=== PATIENT | male | born 1970 | race Caucasian/White ===

== ENCOUNTER 2016-10-17 12:32 | Emergency (ER) | payer OTHER ==
[~2016-10-17] VITALS: Wt 122.5 kg
[~2016-10-17 12:32] MED LIST: KEFLEX500 MG PO; PREDNISONE10 MG PO; PRILOSEC20 MG PO; ROBITUSSIN AC 110 ML PO; SILVADENE1% TP; VENTOLIN H0.09 MG/AC INH
== END 2016-10-17 14:38 | disposition home or self-care (01) ==
LOC: ED 12:32
DX: M25.461 Effusion, right knee (principal); F17.200 Nicotine dependence, unspecified, uncomplicated; W11.XXXA Fall on and from ladder, initial encounter; Y93.89 Activity, other specified; Y92.9 Unspecified place or not applicable; Y99.9 Unspecified external cause status

== ENCOUNTER 2018-01-06 17:46 | Emergency (ER) | payer OTHER ==
[~2018-01-06] VITALS: Ht 185.4 cm; Wt 116.1 kg
[2018-01-06 18:11] LABS: BILIRUBIN 1+ (NEGATIVE); BLOOD NEGATIVE (NEGATIVE); CLARITY SL CLOUDY (CLEAR); COLOR YELLOW (YELLOW); GLUCOSE TRACE (NEGATIVE); KETONE TRACE (NEGATIVE); LEUKO ESTERASE NEGATIVE (NEGATIVE); NITRITE NEGATIVE (NEGATIVE); PH 5.5 (5.0-9.0); SPECIFIC GRAVITY >= 1.030 (1.005-1.030); UROBILINOGEN 0.2 E.U./dl (0.2-1.0)
[2018-01-06 18:20] LABS: URINE AMPHETAMINES < 1000 (1000ng/ml); URINE BARBITURATES < 200 (200ng/ml); URINE BENZODIAZEPINES < 200 (200ng/ml); URINE CANNABINOIDS (THC) < 50 (50ng/ml); URINE COCAINE < 300 (300ng/ml); URINE METHADONE < 300 (300ng/ml); URINE OPIATES < 300 (300ng/ml)
[2018-01-06 18:21] LABS: URINE PHENCYCLIDINE < 25 (25ng/ml)
[2018-01-06 18:23] LABS: BACTERIA TRACE; EPITHELIAL CELLS 0-2; MUCOUS TRACE; RBC 0-2 rbc/hpf (0-2); WBC 0-2 wbc/hpf (0-5)
== END 2018-01-06 18:32 | disposition home or self-care (01) ==
LOC: ED 17:46
PROVIDERS: Physician Assistant
DX: Z00.8 Encounter for other general examination (principal); F17.200 Nicotine dependence, unspecified, uncomplicated; Z79.899 Other long term (current) drug therapy

== ENCOUNTER 2023-07-23 14:04 | Emergency (ER) | payer OTHER ==
[~2023-07-23] VITALS: Ht 185.4 cm; Wt 117.9 kg
[2023-07-23] MEDS ORDERED: JARDIANCE25 MG PO (14:21)
[2023-07-23] MEDS ORDERED: VIBRAMYCIN100 MG PO (15:25)
[2023-07-23] MEDS ORDERED: PREDNISONE50 MG PO (15:25)
== END 2023-07-23 15:29 | disposition home or self-care (01) ==
LOC: ED 14:04
DX: J18.9 Pneumonia, unspecified organism (principal); Z20.822 Contact with and (suspected) exposure to COVID-19; F17.210 Nicotine dependence, cigarettes, uncomplicated; E11.9 Type 2 diabetes mellitus without complications; Z79.899 Other long term (current) drug therapy

== ENCOUNTER 2023-07-24 05:33 | Emergency (ER) | payer OTHER ==
[~2023-07-24 05:33] MED LIST changes: +JARDIANCE25 MG PO; +PREDNISONE50 MG PO; +VIBRAMYCIN100 MG PO
== END 2023-07-24 05:40 ==
LOC: ED 05:33
DX: I46.9 Cardiac arrest, cause unspecified (principal); K21.9 Gastro-esophageal reflux disease without esophagitis; J44.9 Chronic obstructive pulmonary disease, unspecified; E11.9 Type 2 diabetes mellitus without complications